=== PATIENT | male | born 1985 | race Native Hawaiian/Other Pacific Islander ===

== ENCOUNTER 2018-02-21 10:36 | Outpatient (CLI) | payer BC ==
[2018-02-21 10:52] LABS: PLATELET COUNT 201 K/uL (142-355)
== END 2018-02-21 19:09 | disposition home or self-care (01) ==
LOC: LABW 10:36
PROVIDERS: Family Medicine
DX: I10 Essential (primary) hypertension (principal); R79.89 Other specified abnormal findings of blood chemistry; R10.84 Generalized abdominal pain; R53.83 Other fatigue
CPT/HCPCS: 36415; 83001; 83002; 84146; 84402; 84403; 85027